=== PATIENT | male | born 1965 | race Caucasian/White ===

== ENCOUNTER 2019-08-31 08:50 | Outpatient (CLI) | payer OTHER, SELFPAY ==
--- NOTE | 2019-09-04 12:04 | WPDPFTINT ---
PFT Interpretation PFT Interpretation: This PFT met all criteria for ATS standards and reproducibility FEV/FVC post bronchodilator 76% of predicted FEV1 127% or 4.67 liters FVC 120% or 6.12 liters TLC 127% or 9.20 liters RV 127% RV/TLC 33% DLCO 125% of predicted when adjusted for alveolar volume but not adjusted for hemoglobin Flow volume loops showed some expiratory coving Impression: Hyperinflation and elevated diffusion capacity. This pattern suggest Asthma. There has been significant improvement in hyperinflation and air trapping when compared to PFT from October 2018. Niox was 15 ppb which is within normal limits.Clinical correlation is advised.
== END 2019-08-31 08:51 | disposition home or self-care (01) ==
PROVIDERS: PCP Family Medicine; Visit Provider Internal Medicine Critical Care Medicine
DX: J45.30 Mild persistent asthma, uncomplicated (principal); J45.909 Unspecified asthma, uncomplicated; R94.2 Abnormal results of pulmonary function studies
CPT/HCPCS: 94060; 94726; 94729; 95012

== ENCOUNTER 2022-12-22 05:51 | Day surgery (SDC) | payer OTHER, SELFPAY ==
--- NOTE | 2022-12-19 14:12 | P.PNAN_ITS ---
Anes - Initial Pre Proc Eval Procedure: Operation Date: 12/22/22 08:00 Proposed Procedures p Colonoscopy - Waldemar Mccray MD Date/Time: 12/19/22 14:12 Surgeon: Waldemar Mccray MD Pre Op Diagnosis: History of colon polyps Patient Data Age: 57 Gender: M Height: 1.83 m Weight: 104.33 kg Allergies Allergy/AdvReac Type Severity Reaction Status Date / Time No Known Allergies Allergy Unknown Verified 12/22/22 06:38 Home Medications Medication Instructions Recorded Confirmed Type rosuvastatin 20 mg tablet See Rx Instructions .Route 10/23/22 12/22/22 Rx .COMPLEX #90 tabs Patient hx anesthesia problems: none Family hx anesthesia problems: none Results Review: All pre-operative results and documents have been reviewed as part of the pre- operative evaluation. [facility] Past Medical History Medical History (Updated 12/19/22 @ 14:13 by Mani Monsivais DO) Asthma Benign neoplasm of scrotal skin BMI 30.0-30.9,adult BMI 31.0-31.9,adult Colon polyp Mixed hyperlipidemia Rhinitis Surgical History Surgical History H/O knee surgery Family History Family History Father , aortic aneurysm Hypertension Heart disease Mother Arthritis Sibling No problems noted. 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 Informed Consent: The patient's anesthetic plan and its attendant risks and benefits were discussed with the patient/family/POA. Questions were solicited and answers provided to the satisfaction of the patient/family/POA.
[2022-12-22 06:42] VITALS: BP 140/87; PULSE 82; RESP 16; TEMP 36.4; O2SAT 99
[2022-12-22 06:46] VITALS: BMI 31.4
--- NOTE | 2022-12-22 06:55 | SUR.PREOP ---
PT STATES HE HAS INJURY TO HIS RT FOREARM. RFA SLIGHTLY SWOLLEN. IV PLACED IN LEFT ARM
[2022-12-22] MEDS: LACTATED RINGERS 1,000 ML 150 ML IV CONT (06:56)
--- NOTE | 2022-12-22 07:45 | PM.HPGS ---
History of Present Illness History of Present Illness Consent: Risks, benefits, and alternatives have been discussed and questions answered. Patient agrees to proceed with procedure. Chief complaint: History of colon polyps Narrative: Giacomo Nguyen is a 57 year old male Presents for screening colonoscopy. Patient has a history of colon polyps removed at the time previous colonoscopy 2018. Sat is current weight appetite and bowel are normal. Patient denies abdominal pain. He had no bleeding. Family history noncontributory. Review of Systems Review of Systems: Review of systems noncontributory. [facility] Past Medical History Medical History (Updated 12/22/22 @ 07:46 by Waldemar Mccray MD) Asthma Benign neoplasm of scrotal skin BMI 30.0-30.9,adult BMI 31.0-31.9,adult Colon polyp Mixed hyperlipidemia Rhinitis Surgical History Surgical History H/O knee surgery Family History Family History Father , aortic aneurysm Hypertension Heart disease Mother Arthritis Sibling No problems noted. 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[employer] Gender identity (if verbalized by the patient): Male Spiritual care concerns: No Meds Home Medications and Allergies Home Medications Medication Instructions Recorded Confirmed Type rosuvastatin 20 mg tablet See Rx Instructions .Route 10/23/22 12/22/22 Rx .COMPLEX #90 tabs Allergies Allergy/AdvReac Type Severity Reaction Status Date / Time No Known Allergies Allergy Unknown Verified 12/22/22 06:38 Vital Signs Vital Signs - 24 hr 12/22/22 06:42 Temperature 97.6 F Pulse Rate 82 Respiratory Rate 16 Blood Pressure 140/87 Pulse Oximetry 99 Oxygen Delivery Room Air Exam Narrative: Physical exam reveals patient to be alert. Vital signs stable. HEENT exam is unremarkable. Patient is anicteric. Lungs are clear to auscultation and percussion. Heart is without murmur or extra sounds. Abdomen bowel sounds are present soft nontender with no hepatosplenomegaly. Digital external rectal exam is normal. Assessment and Plan Assessment and plan (1) History of colon polyps: Code(s): Z86.010 - Personal history of colonic polyps Status: Acute Assessment and Plan: Patient has a history of benign adenomatous colon polyp removed from the colon at time for his colonoscopy 2018. Plans for surveillance colonoscopy now and consider this a 5 year intervals.
[2022-12-22] MEDS: SIMETHICONE ORAL SUSPENSION 20 MG/0.3 ML 30 ML BOTTLE 0.6 ML IRRIGATION (08:01)
[2022-12-22 08:11] VITALS: BP 109/64; PULSE 83; RESP 16; O2SAT 96
[2022-12-22 08:21] VITALS: BP 102/60; PULSE 72; RESP 15; O2SAT 97
[2022-12-22 08:31] VITALS: BP 108/89; PULSE 75; RESP 16; O2SAT 98
--- NOTE | 2022-12-22 13:32 | WPDANESPN ---
Anes - Prog Note Post-Op Date/Time: 12/22/22 13:32 Cardiovascular status: normal Respiratory status: normal Airway patency: baseline Mental status: baseline Post-Op hydration status: normal Vital Signs: Last Vital Signs Temp 36.4 C 12/22/22 06:42 Pulse 75 12/22/22 08:31 Resp 16 12/22/22 08:31 BP 108/89 12/22/22 08:31 Pulse Ox 98 12/22/22 08:31 O2 Del Method Room Air 12/22/22 08:31 Pain Score (VAS): 0 I/O: Intake & Output 12/21/22 12/22/22 12/22/22 23:59 07:59 15:59 Intake Total 600 Balance 600 Post-procedural complaints: none Patient Feedback: Patient satisfied with anesthetic care. Other Findings: Patient vital signs back to baseline. Patient denies nausea and vomiting. Patient's pain under control. Patient OK for discharge.
== END 2022-12-22 08:40 | disposition home or self-care (01) ==
PROVIDERS: PCP Family Medicine; Visit Provider Internal Medicine Gastroenterology
PROC: 0DJD8ZZ Inspection of Lower Intestinal Tract, Via Natural or Artificial Opening Endoscopic (ICD-10-PCS; CPT 45378; principal; 2022-12-22 08:00)
DX: Z86.010 Personal history of colon polyps (principal); K64.8 Other hemorrhoids
CPT/HCPCS: 45378

== ENCOUNTER 2024-06-15 07:57 | Outpatient (CLI) | payer OTHER, SELFPAY ==
--- NOTE | ~2024-06-15 | XR_ITS ---
XR shoulder RT min 2V 06/15/2024 08:11 Indication: Right shoulder pain Procedure: 4 views right shoulder Comparison: 06/12/2011 Findings: There is moderate polyarticular osteoarthritis of the right shoulder most advanced at the g lenohumeral joint. No fracture, subluxation or dislocation. No foreign bodies. There is remodeling of the glenoid process. Impression: 1: Moderate polyarticular osteoarthritis. Reviewed, dictated and finalized at location A. Impression: 1: Moderate polyarticular osteoarthritis.
--- OUTSIDE RECORDS SUMMARY | 2024-06-15 08:04 | XMS_ITS | Clinical Summary ---
Author Organization [facility] Address [address] [place] [id number] Care Team Providers Care Law Firm Consultant Name Role Phone Chema Branham MD Primary Care Provider [phone] Encounters Date Type Department Care Team Description 04/06/2024 6:43 AM CERTIFIED LEGAL SECRETARY SPECIALIST - 04/06/2024 11:59 PM CERTIFIED LEGAL SECRETARY SPECIALIST Hospital Encounter [facility] [place] [address] Bobby Aaron MD Discharge Disposition: Home or Self Care (Routine Discharge) 04/06/2024 Travel from Last 3 Months Social History Tobacco Use Types Packs/Day Years Used Date Smoking Tobacco: Never Assessed Sex and Gender Information Value Date Recorded Sex Assigned at Male 03/21/2024 11:37 AM CERTIFIED LEGAL SECRETARY SPECIALIST Legal Sex Male 11:37 AM CERTIFIED LEGAL SECRETARY SPECIALIST Gender Identity Not on file Sexual Orientation Not on file Plan of Treatment Health Maintenance Due Date Last Done Comments Colorectal Cancer Screening Colonoscopy (10 Years) 1966 Annual Physical 1969 Hepatitis C 1984 Hepatitis B Vaccines (1 of 3 - 19+ 3-dose series) 1985 Pneumococcal Vaccine: 50+ Years (1 of 1 - PCV) 2016 Zoster Vaccines (1 of 2) 2016 COVID-19 Vaccine (2023-2 5 season) 2023 05/05/2020, 04/07/2020 DTaP, Tdap and Td Vaccines ( 2 - Td or Tdap) 12/09/2033 12/10/2023 Meningococcal B Vaccine Aged Out No l onger eligible based on patient's age to complete this topic Meningococcal Vaccine Aged Out No sravani saeed eligible based on patient's age to complete this topic RSV Immunizations Under 20 Months Aged Out No longer eligible b ased on patient's age to complete this topic Procedures Procedure Name Priority Date/Time Associated Diagnosis Comments CT HEART SCREEN CALCIUM SCORE PROMO Routine 04/06/2024 7:02 AM CERTIFIED LEGAL SECRETARY SPECIALIST Screening for cardiovascular condition from Last 3 Months Results * CT HEART SCREEN CALCIUM SCORE PROMO (04/06/2024 7:02 AM CERTIFIED LEGAL SECRETARY SPECIALIST) Anatomical Region Laterality Modality Chest Computed Tomogra phy 04/06/2024 7:15 AM CERTIFIED LEGAL SECRETARY SPECIALIST Impressions 04/06/2024 7:16 AM CERTIFIED LEGAL SECRETARY SPECIALIST =====IMPRESSION:===== Total Score: 311 Moderate plaque, moderately high risk, moderate likelihood of significant stenosis (>50%). Ordered By: BOBBY AARON Interpreted By: Chema Pinedo MD, 04/06/2024 7:15 AM Narrative 04/06/2024 7:16 AM CERTIFIED LEGAL SECRETARY SPECIALIST [address] [address] EXAMINATION: Multislice Helical CT Coronary Calcium Scoring REASON FOR EXAM: Screening for heart disease COMPARISON: None TECHNIQUE: Multislice helical CT images of the proximal coronary arteries with a computer generated calcification score. A dose lowering technique was used for this procedure, which may include, but is not limited to, dose reduction technique, automated exposure control, iterative reconstruction, ALARA (As Low As Reasonably Achievable), or Image Gently techniques. Results: Left main: 0 LAD: 263 Circumflex: 13.6 Right coronary: 34.2 Total Score: 311 Comments: There is no mediastinal adenopathy, and there are no pulmonary nodules in the visualized portions of the chest. Calcium score guidelines: Total Score* Calcium Plaque [place] *Risk *Probability of significant CAD 0 No Plaque Very Low Very unlikely 1-10 Minimal Plaque Low Unlikely 11-100 Mild Plaque Moderate Low likelihood of significant stenosis <50% 101-400 Moderate Plaque Moderately High Moderate likelihood of significant stenosis (>50%) Over 400 Extensive Plaque High High likelihood of significant stenosis (>50%) The amount of coronary artery calcification correlates with the severity of coronary atherosclerosis and the probability of future significant event. Calcification is not site specific for stenosis and does not identify non-calcified atherosclerotic plaque, but rather indicates the extent of atherosclerosis in the coronary arteries overall. The score may be used as an indicator for risk factor modification or additional cardiac testing. Significant change in calcium score over time may be indicative of subsequent disease development or useful as a benchmark to assess preventative programs. Procedure Note Chema Pinedo MD - 04/06/[address] [address] EXAMINATION: Multislice Helical CT Coronary Calcium Scoring REASON FOR EXAM: Screening for heart disease COMPARISON: None TECHNIQUE: Multislice helical CT images of the proximal coronary arterieswith a computer generated calcification score. A dose lowering techniquewas used for this procedure, which may include, but is not limited to,dose reduction technique, automated exposure control, iterativereconstruction, ALARA (As Low As Reasonably Achievable), or Image Gentlytechniques. Results: Left main: 0 LAD: 263 Circumflex: 13.6 Right coronary: 34.2 Total Score: 311 Comments: There is no mediastinal adenopathy, and there are no pulmonarynodules in the visualized portions of the chest. Calcium score guidelines: Total Score* Calcium Plaque [place] *Risk *Probability ofsignificant CAD 0 No Plaque Very LowVery unlikely 1-10 Minimal Plaque LowUnlikely 11-100 Mild Plaque ModerateLow likelihood of significant stenosis <50% 101-400 Moderate Plaque Moderately HighModerate likelihood of significant stenosis (>50%) Over 400 Extensive Plaque HighHigh likelihood of significant stenosis (>50%) The amount of coronary artery calcification correlates with the severityof coronary atherosclerosis and the probability of future significantevent. Calcification is not site specific for stenosis and does notidentify non-calcified atherosclerotic plaque, but rather indicates theextent of atherosclerosis in the coronary arteries overall. The score may be used as an indicator for risk factor modification oradditional cardiac testing. Significant change in calcium score over timemay be indicative of subsequent disease development or useful as abenchmark to assess preventative programs. =====IMPRESSION:===== Total Score: 311 Moderate plaque, moderately high risk, moderatelikelihood of significant stenosis (>50%). Ordered By: BOBBY AARON Interpreted By: Chema Pinedo MD, 04/06/2024 7:15 AM us Bobby Aaron MD CT Final Res ult from Last 3 Months Insurance Care Teams Law Firm Consultant Relationship Specialty Start Date End Date Chema Branham MD [address] [place] [address] PCP - General FAMILY PRACTICE 03/21/24
--- OUTSIDE RECORDS SUMMARY | 2024-06-15 08:04 | XMS_ITS | Referral Summary ---
Author Organization [facility] Address [address] [place] [address] Care Team Providers Care Felt Checker Name Role Phone Nikole Rivera Primary Care Provider Karina Ulrich MD Unavailable Encounters Date Type Department Care Team Description 06/06/2024 6:45 AM CDT Lab [facility] [address] [place] [address] Family history of ischemic heart disease 05/16/2024 Telephone [facility] [address] [place] [address] 8th [place] [address] [place] [address] Karina Ulrich MD 05/11/2024 7:30 AM CDT Ancillary Procedure [facility] [address] [place] [address] [address] [place] [address] Exertional dyspnea 05/09/2024 Results Follow-Up [facility] [address] [place] [address] Office Building [address] [place] [address] Karina Ulrich MD 05/09/2024 8:30 AM CDT Office Visit [facility] [address] [place] [address] Office Building [address] [place] [address] Karina Ulrich MD Exertional dyspnea (Primary Dx); Mixed hyperlipidemia; Family history of ischemic heart disease; Abnormal findings on diagnostic imaging of heart and coronary circulation; Elevated blood pressure reading 05/05/2024 Telephone [facility] [address] [facility] 8th [place] [address] [place] [address] Beth Gleason from Last 3 Months Allergies No known active allergies Medications rosuvastatin (CRESTOR) 20 mg tablet 08/28/2020 Active lisinopriL (PRINIVIL,ZESTRI L) 5 mg tablet Take 1 tablet (5 mg total) by mouth daily 90 tablet 3 05/17/2024 Active Active Problems Problem Noted Date Diagnosed Date Nasal congestion 04/23/2016 Chronic rhinitis 04/23/2016 Postnasal drip 04/23/2016 Persistent cough 04/23/2016 Tear of medial meniscus of knee 05/28/2015 Social History Tobacco Use Types Packs/Day Years Used Date Smoking Tobacco: Never Tobacco Cessation:Counseling Given: Not Answered Sex and Gender Information Value Date Recorded Sex Assigned at Not on file Legal 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 Gender Identity Not on file Sexual Orientation Not on file Last Filed Vital Signs Vital Sign Reading Time Taken Comments Blood Pressure 142/88 05/09/2024 8:09 AM CDT Pulse 66 05/09/2024 8:09 AM CDT Temperature - - Respiratory Rate - - Oxygen Saturation 98% 05/09/2024 8:09 AM CDT Inhaled Oxygen Concentration - - Weight 104.6 kg (230 lb 9.6 oz) 05/09/2024 8:09 AM CDT Height 180.3 cm (5' 11 ) 05/09/2024 8:09 AM CDT Body Mass Index 32.16 05/09/2024 8:09 AM CDT Plan of Treatment Not on file Procedures Procedure Name Priority Date/Time Associated Diagnosis Comments EGFR Routine 06/06/2024 6:53 AM CDT Family history of ischemic heart disease DIFFERENTIAL AUTO Routine 06/06/2024 6:5 3 AM CDT Family history of ischemic heart disease APOLIPOPROTEIN B Routine 06/06/2024 6:53 AM CDT Family history of ischemic heart disease HEMOGLOBIN A1C Routine 06/06/2024 6:53 AM CDT Family history of ischemic heart disease THYROID FUNCTION CASCADE Routine 06/06/2024 6:53 AM CDT Family history of ischemic heart disease PRO B-TYPE NATRIURETIC PEPTIDE Routine 06/06/2024 6:53 AM CDT Family history of ischemic heart disease MAGNESIUM Routine 06/06/2024 6:53 AM CDT Family history of ischemic heart disease LIPID PANEL Routine 06/06/2024 6:53 AM CDT Family history of ischemic heart disease LIPOPROTEIN A (LPA) Routine 06/06/2024 6 :53 AM CDT Family history of ischemic heart disease COMPREHENSIVE METABOLIC PANEL Routine 06/06/2024 6:53 AM CDT Family history of ischemic heart disease CBC WITH AUTO DIFFERENTIAL Routine 06/06/2024 6:53 AM CDT Family history of ischemic heart disease STRESS ECHO EXERCISE W DOPPLER/CF W CONTRAST Routine 05/11/2024 8:53 AM CDT Exertional dyspnea ECG 12-LEAD Routine 05/09/2024 8:13 AM CDT Mixed hyperlipidemia from Last 3 Months Results * eGFR (06/06/2024 6:53 AM CDT) eGFR 78 >=60 mL/min/1. 73 m2 Comment: Interpretive Data Reference Interval Normal >/= 90 mL/min/1.73m2 Mildly decreased* 60 - 89 mL/min/1.73m2 Mildly to moderately decreased 45 - 59 mL/min/1.73m2 Moderately to severely decreased 30 - 44 mL/min/1.73m2 Severely decreased 15 - 29 mL/min/1.73m2 Kidney Failure < 15 mL/min/1.73m2 *Relative to young adult level Estimated glomerular filtration rate is determined by the 2020 CKD-EPI equation recommended by the National Kidney Foundation (A Unifying Approach to GFR Estimation: Recommendations of the NKF-ASK Task Force on Reassessing the Inclusion of Race in Diagnosing Kidney Disease, JASN 202). The CKD-EPI equation should not be used for patients with unstable renal function and has not been validated in children and those over 70. Current interpretive data was last reviewed 2020. Testing performed by: [address] [address] Blood 06/06/2024 6:53 AM CDT 06/06/2024 7:24 AM CDT us Karina Ulrich MD LAB BLOOD ORDERABLES Final Result [facility] [place] [address] * Differential, auto (06/06/2024 6:53 AM CDT) Neutrophil abs 4.01 1.50 - 6.50 K/cumm Comment:Testing performed by : [address] [address] Imm gran abs 0.02 0.00 - 0.10 K/cumm AMY [facility] Comment:Testing performed by : [address] [address] Lymphocyte abs 2.18 0.80 - 3.30 K/cumm AMY Comment:Testing performed by : [address] [address] Monocyte abs 0.44 0.20 - 0.80 K/cumm AMY Comment:Testing performed by : [address] [address] Eosinophil abs 0.17 0.00 - 0.50 K/cumm AMY Comment:Testing performed by : [address] [address] Basophil abs 0.05 0.00 - 0.10 K/cumm AMY Comment:Testing performed by : [address] [address] Neutrophil pct 58.4 % AMY [facility] Comment: Interpretive Data Percent cell count reference ranges are not reported, since discordance with absolute values may lead to misinterpretation of CBC data. Current Interpretive Data was last revised on 2017. Testing performed by: [address] [address] Imm gran pct 0.3 % [facility] Comment: Interpretive Data Percent cell count reference ranges are not reported, since discordance with absolute values may lead to misinterpretation of CBC data. Current Interpretive Data was last revised on 2017. Testing performed by: [address] [address] Lymphocyte pct 31.7 % [facility] Comment: Interpretive Data Percent cell count reference ranges are not reported, since discordance with absolute values may lead to misinterpretation of CBC data. Current Interpretive Data was last revised on 2017. Testing performed by: [address] [address] Monocyte pct 6.4 % [facility] Comment: Interpretive Data Percent cell count reference ranges are not reported, since discordance with absolute values may lead to misinterpretation of CBC data. Current Interpretive Data was last revised on 2017. Testing performed by: [address] [address] Eosinophil pct 2.5 % [facility] Comment: Interpretive Data Percent cell count reference ranges are not reported, since discordance with absolute values may lead to misinterpretation of CBC data. Current Interpretive Data was last revised on 2017. Testing performed by: [address] [address] Basophil pct 0.7 % [facility] Comment: Interpretive Data Percent cell count reference ranges are not reported, since discordance with absolute values may lead to misinterpretation of CBC data. Current Interpretive Data was last revised on 2017. Testing performed by: [address] [address] Blood 06/06/2024 6:53 AM CDT 06/06/2024 7:24 AM CDT Karina Ulrich MD LAB BLOOD ORDERABLES Final Result Performing Organization Address City/State/[facility] Co de Phone Number AMY [address] [facility] [place] [address] * Pro B-type natriuretic peptide (06/06/2024 6:53 AM CDT) NT-proBNP 48 <=300 pg/mL Comment: Interpretive Comments: A. Dyspnea in Acute Care Setting All Ages: < 300 pg/ml, acute heart failure unlikely. < 50 yrs: 300 - 450 pg/ml, further investigation warranted. > 450 pg/ml, acute heart failure likely. 50 - 74 yrs: 300 - 900 pg/ml, further investigation warranted. > 900 pg/ml, acute heart failure likely . > or = 75 yrs: 450 - 1800 pg/ml, further investigation warranted. > 1800 pg/ml, acute heart failure likely. B. Non-acute Setting < 75 yrs < 125 pg/ml, rules out heart failure. > or = 125 pg/ml, further investigation warranted. > or = 75 yrs < 450 pg/ml, rules out heart failure. > or = 450 pg/ml, further investigation warranted. - Knowledge of each individual patient's NT-proBNP range may be more useful than using similar cut-points for every patient. Please note that marked elevations in NT-proBNP levels may be observed in state other than Left Ventricular Congestive Failure, including: acute coronary syndromes, right heart strain/failure (including pulmonary embolism and cor pulmonale), critical illness, renal failure, as well as advanced age. - References: 1. Italia TARANGO et.al. Eur Heart J. 2006:27:330-337. 2. Keny RW, Lucretia AM. J. AM Eldon Cardiol: Cardiovasc Imag. 2009;2: 216- 225. Interpretive Data Last Revised Date: 2017. Testing performed by: [facility], [address] [place] [address]., [address] Blood 06/06/2024 6:53 AM CDT 06/06/2024 7:24 AM CDT Karina Ulrich MD LAB BLOOD ORDERABLES Final Result Performing Organization Address [facility] Co de Phone Number CERNER [address] [place] [address] * Thyroid Function [place] (06/06/2024 6:53 AM CDT) [facility] TSH 0.97 0.30 - 4.20 mcIUnit/mL Comment:Testing performed by : [address], [address] Blood 06/06/2024 6:53 AM CDT 06/06/2024 7:24 AM CDT Karina Ulrich MD LAB BLOOD ORDERABLES Final Result Performing Organization Address [facility] Co de Phone Number AMY [address] [address] * Apolipoprotein B, serum (06/06/2024 6:53 AM CDT) [facility] Apolipoprotein B 87 mg/dL [place] [facility] Comment: REFERENCE VALUE Desirable: <90 Above Desirable: 90-99 Borderline high: 100-119 High: 120-139 Very high: > or = 140 Test Performed by: [address] [address] Doctor Podiatric Medicine: Siria Shoemaker Ph.D.; CLIA# [id number] Testing performed by: [address] [address] Blood 06/06/2024 6:53 AM CDT 06/06/2024 7:24 AM CDT Karina Ulrich MD LAB BLOOD ORDERABLES Final Result Performing Organization Address City/[facility]/ZIP Co de Phone Number AMY [address] [address] [facility] * CBC with auto differential (06/06/2024 6:53 AM CDT) WBC 6.87 3.80 - 9.90 K/cumm Comment:Testing performed by : [address] [address] Hgb 15.3 13.0 - 17.5 g/dL AMY Comment:Testing performed by : [address] [address] Hct 43.7 38.9 - 50.3 % AMY Comment:Testing performed by : [address] [address] Plt 285 150 - 400 K/cumm AMY Comment:Testing performed by : [address], [address] MPV 9.6 9.1 - 12.3 fL AMY Comment:Testing performed by : [address] [address] RBC 5.36 4.30 - 5.80 M/cumm AMY Comment:Testing performed by : [address] [address] MCV 81.5 81.3 - 96.4 fL AMY Comment:Testing performed by : [address] [address] MCH 28.5 27.1 - 33.3 pg AMY Comment:Testing performed by : [address] [address] MCHC 35.0 32.3 - 35.7 g/dL AMY Comment:Testing performed by : [address], [address] RDW CV 12.3 11.1 - 14.9 % AMY Comment:Testing performed by : [address] [address] RDW SD 36.2 35.7 - 48.1 fL AMY Comment:Testing performed by : [address] [address] NRBC abs 0.00 0.00 - 0.01 K/cumm AMY Comment:Testing performed by : [address], [address] Blood 06/06/2024 6:53 AM CDT 06/06/2024 7:24 AM CDT us Karina Ulrich MD LAB BLOOD ORDERABLES Final Result AMY [address] [facility] [place] [address] * (ABNORMAL) Lipoprotein a (LPa) (06/06/2024 6:53 AM CDT) Lipoprotein A 170(H) <75 nmol/L [place] Comment: Lp(a) confers increased risk for coronary disease and aortic stenosis starting at concentrations of 75 nmol/L and greater. Lp(a) >=125 nmol/L is considered a risk-enhancing factor for cardiovascular disease by several professional societies. Clinician-patient discussion of therapeutic strategy is warranted. ADDITIONAL INFORMATION Please notice that Lp(a) values are reported in molar units (nmol/L). These units are recommended by professional society guidelines and expert opinion statements. Measured results and risk thresholds are higher than those generated using mass units (mg/dL). Cardiovascular risk increases starting at 75 nmol/L. Lp(a) >=125 nmol/L is considered a risk enhancing factor by the [place] [employer]. This test has been modified from the communications officer's instructions. Its performance characteristics were determined by [facility] in a manner consistent with CLIA requirements. This test has not been cleared or approved by the U.S. Food and Drug Administration. Test Performed by: [facility] [address] [address] Doctor Podiatric Medicine: Siria Shoemaker Ph.D.; CLIA# [id number] Testing performed by: [facility], [address] [place] [address]., [address] Blood 06/06/2024 6:53 AM CDT 06/06/2024 7:23 AM CDT us Karina Ulrich MD LAB BLOOD ORDERABLES Final Result Performing Organization Address City/[facility]/ZIP Co de Phone Number AMY [address] [place] [address] [facility] * Magnesium (06/06/2024 6:53 AM CDT) [facility] Magnesium 1.9 1.4 - 2.5 mg/dL Comment:Testing performed by : [address] [address] Blood 06/06/2024 6:53 AM CDT 06/06/2024 7:24 AM CDT Karina Ulrich MD LAB BLOOD ORDERABLES Final Result Performing Organization Address [facility] Co de Phone Number AMY [address] [address] * Hemoglobin A1c (06/06/2024 6:53 AM CDT) [facility] Hgb A1C 5.2 4.0 - 5.6 % Comment:Testing performed by : [address] [address] Estimated Average Glucose 103 mg/dL AMY Comment: The ADA recommends reporting an estimated Average Glucose (eAG) with all Hemoglobin A1c results using the equation derived from a study of 507 normal and diabetic adults. Minority populations were underrepresented and children were not included. (Diabetes Care 31:8816-1744, 2008). The eAG is not equivalent to a fasting glucose. Testing performed by: [address] [address] Blood 06/06/2024 6:53 AM CDT 06/06/2024 7:24 AM CDT Karina Ulrich MD LAB BLOOD ORDERABLES Final Result Performing Organization Address [facility] Co de Phone Number [address] [address] * Lipid panel (06/06/2024 6:53 AM CDT) Cholesterol 169 30 - 199 mg/dL Comment: Interpretive Data Ages < or = 19 years Acceptable: <170 mg/dL Borderline high: 170-199 mg/dL High: >or= 200 mg/dL Ages > or = 20 years Desirable: <200 mg/dL Borderline high: 200-239 mg/dL High: >or= 240 mg/dL Literature References: 1. Expert Panel on Integrated Guidelines for Cardiovascular Health and Risk Reduction in Children and Adolescents. Pediatrics 2011;128:S213 2. NCEP Expert Panel. Circulation 2004;110:227 Current Interpretive Data was last revised on 2017. Testing performed by: [address] [address] Triglycerides 113 <=149 mg/dL AMY Comment: Interpretive Data Ages < or = 9 years Acceptable: <75 mg/dL Borderline high: 75-99 mg/dL High: >or= 100 mg/dL Ages 10 to 20 years Acceptable: <90 mg/dL Borderline high: 90-129 mg/dL High: >or= 130 mg/dL Ages > or = 20 years Desirable: <150 mg/dL Borderline high: 150-199 mg/dL High: 200-499 mg/dL Very high: >or= 499 mg/dL Literature References: 1. Expert Panel on Integrated Guidelines for Cardiovascular Health and Risk Reduction in Children and Adolescents. Pediatrics 2011;128:S213 2. NCEP Expert Panel. Circulation 2003;110:227 Current Interpretive Data was last revised on 2017. Testing performed by: [address] [address] HDL 46 >=40 mg/dL AMY Comment: Interpretive Data Ages < or = 19 years Acceptable: >45 mg/dL Borderline low: 40-45 mg/dL Low: <40 mg/dL Ages > or = 20 years Desirable: >or= 60 mg/dL Low: <40 mg/dL Literature References: 1. Expert Panel on Integrated Guidelines for Cardiovascular Health and Risk Reduction in Children and Adolescents. Pediatrics 2011;128:S213 2. NCEP Expert Panel. Circulation 2004;110:227 Current Interpretive Data was last revised on 2017. Testing performed by: [address] [address] LDL, calculated 103 <=129 mg/dL AMY Comment: Interpretive Data Ages < or = 19 years Acceptable: <110 mg/dL Borderline high: 110-129 mg/dL High: >or= 130 mg/dL Ages > or = 20 years Optimal: <100 mg/dL Near optimal: 100-129 mg/dL Borderline high: 130-159 mg/dL High: >160 mg/dL Calculated using the Mohan LDL-C estimating equation. This equation was implemented on 2023. Prior to this date LDL-C was estimated using the Friedewald equation. Literature References: 1. Expert Panel on Integrated Guidelines for Cardiovascular Health and Risk Reduction in Children and Adolescents. Pediatrics 2011;128:S213 2. NCEP Expert Panel. Circulation 2004;110:227 3. Mohan Oshea et al. ANGELA Cardiol. 2019June 23;5(5):540-548. doi: 10.1001/jamacardio.2020.0013 Current Interpretive Data was last revised on 2023. Testing performed by: [address] [address] Non-HDL Cholesterol 123 mg/dL AMY Comment: Interpretive Data Ages < or = 19 years Acceptable: <120 mg/dL Borderline high: 120-144 mg/dL High: >145 mg/dL Ages > or = 20 years When triglycerides are >200 mg/dL, Non-HDL cholesterol is a secondary target of therapy with treatment goals that are 30 mg/dL greater than the LDL cholesterol target. Literature References: 1. Expert Panel on Integrated Guidelines for Cardiovascular Health and Risk Reduction in Children and Adolescents. Pediatrics 2011;128:S213 2. NCEP Expert Panel. Circulation 2004;110:227 Current Interpretive Data was last revised on 2017. Testing performed by: [address] [address] Chol/HDL ratio 4 AMY Comment:Testing performed by : [address] [address] Blood 06/06/2024 6:53 AM CDT 06/06/2024 7:24 AM CDT Karina Ulrich MD LAB BLOOD ORDERABLES Final Result AMY [address] [facility] [place] [address] * Comprehensive metabolic panel (06/06/2024 6:53 AM CDT) Sodium 142 135 - 145 mmol/L Comment:Testing performed by : [address] [address] Potassium, pl 3.5 3.3 - 4.9 mmol/L AMY Comment:Testing performed by : [address] [address] Chloride 104 97 - 110 mmol/L AMY Comment:Testing performed by : [address] [address] CO2 26 22 - 32 mmol/L AMY Comment:Testing performed by : [address] [address] Anion gap 12 2 - 15 mmol/L AMY Comment:Testing performed by : [address] [address] BUN 15 6 - 25 mg/dL AMY Comment:Testing performed by : [address] [address] Creatinine 1.10 0.80 - 1.30 mg/dL AMY Comment:Testing performed by : [address] [address] Glucose 105 70 - 199 mg/dL AMY Comment: Interpretive Data Fasting glucose >/= 126 mg/dl is diagnostic for diabetes. Fasting is defined as no caloric intake for at least 8 hours. Fasting glucose between 100 mg/dl to 125 mg/dl is diagnostic of prediabetes. In a patient with classic symptoms of hyperglycemia or hyperglycemic crisis, a random glucose >/= 200 mg/dl is diagnostic for diabetes. In the absence of unequivocal hyperglycemia, results should be confirmed by repeat testing. The classification and Diagnosis of Diabetes Diabetes Care 202; 46: S19-S40. Current interpretive data was last revised 2022. Testing performed by: [address] [address] Calcium 9.0 8.5 - 10.3 mg/dL AMY Comment:Testing performed by : [address] [address] Bilirubin, total 0.6 0.1 - 1.2 mg/dL AMY Comment:Testing performed by : [address] [address] Protein, pl 7.0 6.5 - 8.5 g/dL AMY Comment:Testing performed by : [address] [address] Albumin 4.0 3.5 - 5.0 g/dL AMY Comment:Testing performed by : [address] [address] Alk phos 62 40 - 130 Units/L AMY Comment:Testing performed by : [address] [address] ALT 14 7 - 55 Units/L AMY Comment:Testing performed by : [address] [address] AST 18 10 - 50 Units/L AMY Comment:Testing performed by : [address] [address] Blood 06/06/2024 6:53 AM CDT 06/06/2024 7:24 AM CDT us Karina Ulrich MD LAB BLOOD ORDERABLES Final Result Performing Organization Address City/State/[facility] Co ga Phone Number [facility] [address] [facility] [place] [address] * STRESS ECHO EXERCISE W DOPPLER/CF W CONTRAST (05/11/2024 8:53 AM CDT) Anatomical Region Laterality Modality Ultrasound 05/11/2024 7:30 AM CDT Narrative 05/11/2024 1:29 PM CDT [facility] [address] [place] [address] Exercise Stress Transthoracic Echocardiographic Report Patient Name: TERRY TREVINO S : 1965 (58y 11m) Gender: M Study Date: 05/11/2024 07:30:00 AM Ht(Inch): 71 Wt(Lb): 227.96 BSA: 2.28 Peanut Butter Maker: Lisbeth Cornejo, TIFFANIECS, RCCS, ACS Location: [facility] Order Provider: KARINA ULRICH Heart Rate: 66 BMI: 31.79 BP: 143 / 86 Ref Provider: KARINA ULRICH PROCEDURES: Stress Echo Report: Stress Echocardiography,transthoracic, real-time with image documentation (2D), includes M-Mode recording, Doppler Echocardiography, and Doppler color flow when performed, during treadmill exercise induced peak heart rate with interpretation and report; including performance of continuous electrocardiographic monitoring, with physician supervision. Additional Procedures: Ultrasound enhancing agent (echo contrast) was administered. Contrast: Contrast Enhancement was Employed: After initial imaging due to sub- optimal quality related to co-morbidity defined by patient's body habitus, used Perflutren contrast because 2 of 16 LV wall segments in any view not visualized, using the volume necessary to obtain adequate images and. 1.1 ml Optison Administered, (1.9 ml wasted). Performed By: Marianela Wright RN, MSN. Supervising Physician: Dr. Barbie Fung. Procedure Notes: IV Access Placement: right antecubital fossa. Catheter Size: 22 gauge. Patient has been given instructions and understands the test, consent obtained. Patient has been NPO for 4 hours. Medications Held: none. Medications Taken: crestor. INDICATIONS: R06.09 Other forms of dyspnea. CONCLUSIONS: 1. Normal LV wall thickness. Mild concentric left ventricular hypertrophy. Normal left ventricular systolic function. The Ejection Fraction (Lazar's) is measured at 63 %. Normal diastolic function. The average global longitudinal strain is borderline. 2. No ischemic ST changes noted on exercise ECG. 3. Maximal treadmill stress echocardiogram (93% MPHR) with normal hyperdynamic contractile response with no inducible ischemia. 4. Exercise performance was excellent (13 METS). 5. Right ventricular dilatation. Normal right ventricular systolic function. 6. Mild aortic valve regurgitation. 7. No tricuspid regurgitation. PASP cannot be evaluated due to inadequate TR jet. 8. Normal aortic root size, SoV~3.8cm. 9. IVC is normal in size. COMPARISONS: No previous study available for comparison. ATTESTATION: I have personally reviewed and interpreted this study without fellow or resident. - DISCLAIMER: The study images and the final report will be retained in the patient chart by the Echo Laboratory for the legally required time period. This chart constitutes the legal record of any testing performed. FINDINGS: Left Ventricle: Normal left ventricular size based on volume index. Normal LV wall thickness. Mild concentric left ventricular hypertrophy. Normal left ventricular systolic function. The Ejection Fraction (Lazar's) is measured at 63 %. Normal diastolic function. The average global longitudinal strain is borderline. The LV global strain is: -18.0 %. Right Ventricle: Right ventricular dilatation. Normal right ventricular systolic function. Left Atrium: The left atrium is normal in size. Right Atrium: Visually, RA normal in size. Atrial Septum: Normal interatrial septum. Mitral Valve: Normal mitral valve structure. Trace mitral regurgitation. No stenosis present. Aortic Valve: Trileaflet aortic valve. Minimally thickened aortic valve leaflets. Mild aortic valve regurgitation. No aortic valve stenosis. Tricuspid Valve: Normal tricuspid valve structure. No tricuspid regurgitation. PASP cannot be evaluated due to inadequate TR jet. Pulmonic Valve: The pulmonic valve is not well visualized due to not visualized. Unable to assess for KS/PS. Pericardium: No pericardial effusion. Aorta: Normal aortic root size, SoV~3.8cm. Normal aortic root size when indexed. The ascending aorta is normal in size when indexed. Prox asc Ao~3.5cm. IVC: IVC is normal in size. The IVC was <2.1 cm and collapsibility >50%. (est. RA pressure 0-5 mmHg). Resting ECG: Normal sinus rhythm. Premature ventricular contractions. Stress Data: Protocol - Sanjeev Protocol. Exercise Time: 10 Min 31 Sec Resting HR: 73 bpm Resting BP: 143/86 mmHg Standing HR: 85 bpm Standing BP: 150/88 mmHg Peak HR: 151 bpm Peak BP: 194/80 mmHg Predicted Maximal HR: 163 Percent predicted max HR achieved: 93 % Rate-Pressure Product: 15448 METS Achieved: 13.40 Treadmill Angina Index (0=No angina during exercise, 1=non-limiting angina, 2=exercise limited angina): 0 Recovery: Recovery HR: 93 bpm Recovery BP: 194/86 mmHg Recovery HR: 85 bpm Recovery BP: 178/84 mmHg Recovery HR: 83 bpm Recovery BP: 160/84 mmHg HR Response: Heart rate response is appropriate. BP Response: Blood pressure response is appropriate. Exercise ECG: No ischemic ST changes noted on exercise ECG. Reason for Termination: Limiting Dyspnea. Arrhythmia: No exercise induced arrhythmias. Cardiac Symptoms: Symptoms with stress were patient had no stress related symptoms. Exercise Performance: Exercise performance was excellent (13 METS). Exercise Stress LV Function: Maximal treadmill stress echocardiogram (93% MPHR) with normal hyperdynamic contractile response with no inducible ischemia. MEASUREMENTS: 2D/MM Value Range Doppler Value Range LVIDd 2D 5.25 cm [ 4.20 - 5.80 ] LVOT Peak Mendez 1.0 m/s [ 0.7 - 1.1 ] LVIDs 2D 3.06 cm [ 2.50 - 4.00 ] LVOT Peak PG 4.00 mmHg IVSd 2D 1.26 cm [ 0.60 - 1.00 ] LVOT Mean PG 2 mmHg LVPWd 2D 1.04 cm [ 0.60 - 1.00 ] LVOT VTI 21.3 cm LV Thickness Ratio 1.2 LVOT Diam 2.32 cm LV FS 2D 33.05 % [ 25.00 - 43.00 ] MV E Peak Mendez 0.7 m/s [ 0.6 - 1.3 ] LV Mass 2D 242.90 g MV A Peak Mendez 0.5 m/s [ 1.0 - 1.2 ] LV Mass Index 2D 106.54 g/m2 MV E/A 1.4 ratio [ 0.8 - 1.5 ] RWT 0.40 MV Decel Time 179.21 msec [ 104.00 - 258.00 ] EDV Mod BP 143.97 ml [ 62.00 - 150.00 ] Med E` Mendez 7.1 cm/sec [ 8.0 - 15.0 ] LV EDV Index 63.14 ml/m2 Lat E` Mendez 9.1 cm/sec [ 10.0 - 15.0 ] ESV Mod BP 53.05 ml [ 21.00 - 61.00 ] Average E/E` 8.64 EF Mod BP 63 % [ 52 - 72 ] LV GLS -18.0 % [ -18.0 - -16.0 ] LA Volume BP 60.00 ml LA Volume Index 26.32 ml/m2 [ 16.00 - 34.00 ] RV Base Dimen 2D 5.4 cm [ 2.5 - 4.2 ] RV Length Dimen 2D 7.7 cm TAPSE 2.54 cm [ 1.71 - 5.00 ] AoR Diam 2D 3.77 cm [ 3.10 - 3.70 ] Ao Root Index 1.65 cm/m2 [ 1.00 - 2.00 ] Asc Ao Diam 2D 3.47 cm Asc Ao Index 1.52 cm/m2 Electronically Signed By: Barbie Fung M.D. 05/11/2024 1:28:22 PM CDT CC: Karina Ulrich MD Procedure Note Barbie Fung MD - 05/11/2024 [facility] [address] , [address] [place] [address] Exercise Stress Transthoracic Echocardiographic Report Patient Name: TERRY TREVINO S : 1965 (58y 11m) Gender: M Study Date: 05/11/2024 07:30:00 AM Ht(Inch): 71 Wt(Lb): 227.96 BSA: 2.28 Peanut Butter Maker: Lisbeth Cornejo, TIFFANIECS, RCCS, ACS Location: I Order Provider:KARINA ULRICH Heart Rate: 66 BMI: 31.79 BP: 143 / 86 Ref Provider: KARINA ULRICH PROCEDURES: Stress Echo Report: Stress Echocardiography,transthoracic, real-time withimage documentation (2D), includes M-Mode recording, Doppler Echocardiography,and Doppler color flow when performed, during treadmill exercise induced peak heartrate with interpretation and report; including performance of continuouselectrocardiographic monitoring, with physician supervision. Additional Procedures: Ultrasound enhancing agent (echo contrast) wasadministered. Contrast: Contrast Enhancement was Employed: After initial imaging due tosub- optimal quality related to co-morbidity defined by patient's body habitus, usedPerflutren contrast because 2 of 16 LV wall segments in any view not visualized,using the volume necessary to obtain adequate images and. 1.1 ml Optison Administered, (1.9ml wasted). Performed By: Marianela Wright RN, MSN. Supervising Physician: Dr. Barbie Fung. Procedure Notes: IV Access Placement: right antecubital fossa. CatheterSize: 22 gauge. Patient has been given instructions and understands the test, consentobtained. Patient has been NPO for 4 hours. Medications Held: none. Medications Taken:crestor. INDICATIONS: R06.09 Other forms of dyspnea. CONCLUSIONS: 1. Normal LV wall thickness. Mild concentric left ventricular hypertrophy.Normal left ventricular systolic function. The Ejection Fraction (Lazar's) ismeasured at 63 %. Normal diastolic function. The average global longitudinal strain isborderline. 2. No ischemic ST changes noted on exercise ECG. 3. Maximal treadmill stress echocardiogram (93% MPHR) with normalhyperdynamic contractile response with no inducible ischemia. 4. Exercise performance was excellent (13 METS). 5. Right ventricular dilatation. Normal right ventricular systolicfunction. 6. Mild aortic valve regurgitation. 7. No tricuspid regurgitation. PASP cannot be evaluated due to inadequateTR jet. 8. Normal aortic root size, SoV~3.8cm. 9. IVC is normal in size. COMPARISONS: No previous study available for comparison. ATTESTATION: I have personally reviewed and interpreted this study without fellow orresident. - DISCLAIMER: The study images and the final report will be retained in the patientchart by the Echo Laboratory for the legally required time period. This chart constitutesthe legal record of any testing performed. FINDINGS: Left Ventricle: Normal left ventricular size based on volume index. NormalLV wall thickness. Mild concentric left ventricular hypertrophy. Normal leftventricular systolic function. The Ejection Fraction (Lazar's) is measured at 63 %. Normaldiastolic function. The average global longitudinal strain is borderline. The LVglobal strain is: -18.0 %. Right Ventricle: Right ventricular dilatation. Normal right ventricularsystolic function. Left Atrium: The left atrium is normal in size. Right Atrium: Visually, RA normal in size. Atrial Septum: Normal interatrial septum. Mitral Valve: Normal mitral valve structure. Trace mitral regurgitation.No stenosis present. Aortic Valve: Trileaflet aortic valve. Minimally thickened aortic valveleaflets. Mild aortic valve regurgitation. No aortic valve stenosis. Tricuspid Valve: Normal tricuspid valve structure. No tricuspidregurgitation. PASP cannot be evaluated due to inadequate TR jet. Pulmonic Valve: The pulmonic valve is not well visualized due to notvisualized. Unable to assess for KS/PS. Pericardium: No pericardial effusion. Aorta: Normal aortic root size, SoV~3.8cm. Normal aortic root size whenindexed. The ascending aorta is normal in size when indexed. Prox asc Ao~3.5cm. IVC: IVC is normal in size. The IVC was <2.1 cm and collapsibility >50%.(est. RA pressure 0-5 mmHg). Resting ECG: Normal sinus rhythm. Premature ventricular contractions. Stress Data: Protocol - Sanjeev Protocol. Exercise Time: 10 Min 31 Sec Resting HR: 73 bpm Resting BP: 143/86 mmHg Standing HR: 85 bpm Standing BP: 150/88 mmHg Peak HR: 151 bpm Peak BP: 194/80 mmHg Predicted Maximal HR: 163 Percent predicted max HR achieved: 93 % Rate-Pressure Product: 34024 METS Achieved: 13.40 Treadmill Angina Index (0=No angina during exercise, 1=non-limitingangina, 2=exercise limited angina): 0 Recovery: Recovery HR: 93 bpm Recovery BP: 194/86 mmHg Recovery HR: 85bpm Recovery BP: 178/84 mmHg Recovery HR: 83 bpm Recovery BP: 160/84 mmHg HR Response: Heart rate response is appropriate. BP Response: Blood pressure response is appropriate. Exercise ECG: No ischemic ST changes noted on exercise ECG. Reason for Termination: Limiting Dyspnea. Arrhythmia: No exercise induced arrhythmias. Cardiac Symptoms: Symptoms with stress were patient had no stress relatedsymptoms. Exercise Performance: Exercise performance was excellent (13 METS). Exercise Stress LV Function: Maximal treadmill stress echocardiogram (93%MPHR) with normal hyperdynamic contractile response with no inducible ischemia. MEASUREMENTS: 2D/MM Value Range DopplerValue Range LVIDd 2D 5.25 cm [ 4.20 - 5.80 ] LVOT Peak Vel1.0 m/s [ 0.7 - 1.1 ] LVIDs 2D 3.06 cm [ 2.50 - 4.00 ] LVOT Peak PG4.00 mmHg IVSd 2D 1.26 cm [ 0.60 - 1.00 ] LVOT Mean PG2 mmHg LVPWd 2D 1.04 cm [ 0.60 - 1.00 ] LVOT VTI21.3 cm LV Thickness Ratio 1.2 LVOT Diam2.32 cm LV FS 2D 33.05 % [ 25.00 - 43.00 ] MV E Peak Vel0.7 m/s [ 0.6 - 1.3 ] LV Mass 2D 242.90 g MV A Peak Vel0.5 m/s [ 1.0 - 1.2 ] LV Mass Index 2D 106.54 g/m2 MV E/A1.4 ratio [ 0.8 - 1.5 ] RWT 0.40 MV Decel Xymt426.21 msec [ 104.00 - 258.00 ] EDV Mod BP 143.97 ml [ 62.00 - 150.00 ] Med E` Vel7.1 cm/sec [ 8.0 - 15.0 ] LV EDV Index 63.14 ml/m2 Lat E` Vel9.1 cm/sec [ 10.0 - 15.0 ] ESV Mod BP 53.05 ml [ 21.00 - 61.00 ] Average E/E`8.64 EF Mod BP 63 % [ 52 - 72 ] LV GLS -18.0 % [ -18.0 - -16.0 ] LA Volume BP60.00 ml LA Volume Index 26.32 ml/m2 [ 16.00 - 34.00 ] RV Base Dimen 2D 5.4 cm [ 2.5 - 4.2 ] RV Length Dimen 2D7.7 cm TAPSE 2.54 cm [ 1.71 - 5.00 ] AoR Diam 2D 3.77 cm [ 3.10 - 3.70 ] Ao Root Index 1.65 cm/m2 [ 1.00 - 2.00 ] Asc Ao Diam 2D3.47 cm Asc Ao Index1.52 cm/m2 Electronically Signed By: Barbie Fung M.D. 05/11/2024 1:28:22 PM CDT CC: Karina Ulrich MD us Karina Ulrich MD CV ECHO PROCEDURES Final R esult * ECG 12 lead (05/09/2024 8:13 AM CDT) us Karina Ulrich MD ECG ORDERABLES Edited Res ult - Final from Last 3 Months Insurance [employer] [facility] [employer] Care Teams Felt Checker Relationship Specialty Start Date End Date Nikole Rivera PA [address] [place], [place] [id number] PCP - General Physician Intermediate Manager 05/05/24 Karina Ulrich MD [id number] [id number] Securities Underwriter Cardiology 06/14/24 02/23/40
--- OUTSIDE RECORDS SUMMARY | 2024-06-15 08:04 | XMS_ITS | Clinical Summary ---
Author Organization [facility] Address [address] [place] [address] Care Team Providers Care Adhesive Primer Name Role Phone Nikole Rivera Primary Care Provider Karina Ulrich MD Unavailable Allergies No known active allergies Medications rosuvastatin (CRESTOR) 20 mg tablet 08/28/2020 Active lisinopriL (PRINIVIL,ZESTRI L) 5 mg tablet Take 1 tablet (5 mg total) by mouth daily 90 tablet 3 05/17/2024 Active Active Problems Problem Noted Date Diagnosed Date Nasal congestion 04/23/2016 Chronic rhinitis 04/23/2016 Postnasal drip 04/23/2016 Persistent cough 04/23/2016 Tear of medial meniscus of knee 05/28/2015 Encounters Date Type Department Care Team Description 06/06/2024 6:45 AM CDT Lab [facility] [address] [place] [address] Family history of ischemic heart disease 05/16/2024 Telephone [facility] [address] [facility] [address] 8th [place] [address] [place] [address] Karina Ulrich MD 05/11/2024 7:30 AM CDT Ancillary Procedure Heart [facility] [address] [facility] [address] [place] [address] Exertional dyspnea 05/09/2024 8:30 AM CDT Office Visit [facility] [address] [facility] [address] [place] [address] Karina Ulrich MD Exertional dyspnea (Primary Dx); Mixed hyperlipidemia; Family history of ischemic heart disease; Abnormal findings on diagnostic imaging of heart and coronary circulation; Elevated blood pressure reading 05/09/2024 Results Follow-Up [facility] [address] [facility] [address] [place] [address] Karina Ulrich MD 05/05/2024 Telephone [facility] [address] [facility] [address] [facility] [address] 8th [place] [address] [place] [address] Beth Gleason from Last 3 Months Surgical History Surgery Date Site/Laterality Comments KNEE SURGERY Knee Surgery - Meniscectomy (Added by TW Conv) Family History Medical History Relation Name Comments Aortic aneurysm Father Dissection Hypertension Father Family history of hypertension - (Added by TW Conv) Heart attack Paternal Grandfather Relation Name Status Comments Father Paternal Grandfather Social History Tobacco Use Types Packs/Day Years Used Date Smoking Tobacco: Never Tobacco Cessation:Counseling Given: Not Answered Sex and Gender Information Value Date Recorded Sex Assigned at Not on file Legal Sex Male 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 Gender Identity Not on file Sexual Orientation Not on file Obstetrics History Last Filed Vital Signs Vital Sign Reading [...] 05/09/2024 8:09 AM CDT Plan of Treatment Health Maintenance Due Date Last Done Comments Colon Cancer Screening-Colonoscopy 1966 Depression Screening 1966 Hepatitis C Screening 1966 Prostate Cancer Screening-PSA 1966 DTaP/Tdap/Td Vaccine (1 - Tdap) 1977 Hepatitis B Screening 1984 Regular Well Visit/Exam 18-64 1984 Zoster Vaccine (1 of 2) 2016 Covid-19 Vaccine (2023-2 5 season) 2023 05/05/2020, 04/07/2020 Influenza Vaccine (Season Ended) 2024 11/26/2019, 02/10/2019 Pneumococcal vaccine <65 Aged Out No longer eligible based on patient's age to complete [...] of Race in Diagnosing Kidney Disease, JASN 2020). The CKD-EPI equation should not be used for patients with unstable renal function and has not been validated in children and those over 70. Current interpretive data was last reviewed 2020. Testing performed by: [facility], [address] [place] [address]., [address] Blood 06/06/2024 6:53 AM CDT 06/06/2024 7:24 AM CDT us Karina Ulrich MD LAB BLOOD ORDERABLES Final Result [facility] [address] [facility] [place] [address] * Differential, auto (06/06/2024 6:53 AM CDT) Neutrophil abs 4.01 1.50 - 6.50 K/cumm Comment:Testing performed by : [address] [address] Imm gran abs 0.02 0.00 - 0.10 K/cumm [facility] Comment:Testing performed by : [address] [address] Lymphocyte abs 2.18 0.80 - 3.30 K/cumm [facility] Comment:Testing performed by : [address], [place]., [address] Monocyte abs 0.44 0.20 - 0.80 K/cumm [facility] Comment:Testing performed by : [address], [place]., [address] Eosinophil abs 0.17 0.00 - 0.50 K/cumm [facility] Comment:Testing performed by : [address] [address] Basophil abs 0.05 0.00 - 0.10 K/cumm [facility] Comment:Testing performed by : [address] [address] Neutrophil pct 58.4 % [facility] Comment: Interpretive Data Percent cell count reference ranges are not reported, since discordance with absolute values may lead to misinterpretation of CBC data. Current Interpretive Data was last revised on 2017. Testing performed by: [address] [address] Imm gran pct 0.3 % [facility] Comment: Interpretive Data Percent cell count reference ranges are not reported, since discordance with absolute values may lead to misinterpretation of CBC data. Current Interpretive Data was last revised on 2017. Testing performed by: [address] [address] Lymphocyte pct 31.7 % [facility] Comment: Interpretive Data Percent cell count reference ranges are not reported, since discordance with absolute values may lead to misinterpretation of CBC data. Current Interpretive Data was last revised on 2017. Testing performed by: [address] [address] Monocyte pct 6.4 % [facility] Comment: Interpretive Data Percent cell count reference ranges are not reported, since discordance with absolute values may lead to misinterpretation of CBC data. Current Interpretive Data was last revised on 2017. Testing performed by: [facility], [address] [place] [address]., [address] Eosinophil pct 2.5 % [facility] Comment: Interpretive Data Percent cell count reference ranges are not reported, since discordance with absolute values may lead to misinterpretation of CBC data. Current Interpretive Data was last revised on 2017. Testing performed by: [address] [address] Basophil pct 0.7 % [facility] Comment: Interpretive Data Percent cell count reference ranges are not reported, since discordance with absolute values may lead to misinterpretation of CBC data. Current Interpretive Data was last revised on 2017. Testing performed by: [address] [address] Blood 06/06/2024 6:53 AM CDT 06/06/2024 7:24 AM CDT us Karina Ulrich MD LAB BLOOD ORDERABLES Final Result [facility] [address] [facility] [place] [address] * Pro B-type natriuretic peptide (06/06/2024 6:53 [...] Heart J. 2006:27:330-337. 2. Keny RW, Lucretia BERGERON. J. AM Eldon Cardiol: Cardiovasc Imag. 2009;2: 216- 225. Interpretive Data Last Revised Date: 2017. Testing performed by: [facility], [address] [place] [address]., [address] Blood 06/06/2024 6:53 AM CDT 06/06/2024 7:24 AM CDT Karina Ulrich MD LAB BLOOD ORDERABLES Final Result Performing Organization Address [facility] de Phone Number [address] [place] [address] * Thyroid Function Mesa (06/06/2024 6:53 AM CDT) Pathologist [facility] TSH 0.97 0.30 - 4.20 mcIUnit/mL Comment:Testing performed by : [facility], [address] [place] [address]., [address] Blood 06/06/2024 6:5 3 AM CDT 06/06/2024 7:24 AM CDT Karina Ulrich MD LAB BLOOD ORDERABLES Final Result Performing Organization Address [facility] Co de Phone Number [address] [place] [address] * Apolipoprotein B, serum (06/06/2024 6:53 AM CDT) Pathologist [facility] Apolipoprotein B 87 mg/dL [facility] Comment: REFERENCE VALUE Desirable: <90 Above Desirable: 90-99 Borderline high: 100-119 High: 120-139 Very high: > or = 140 Test Performed by: [address] [address] Hr Internship: Siria Shoemaker Ph.D.; CLIA# [id number] Testing performed by: [address] [address] Blood 06/06/2024 6:53 AM CDT 06/06/2024 7:24 AM CDT us Karina Ulrich MD LAB BLOOD ORDERABLES Final Result [facility] Department [place] [address] [facility] * CBC with auto differential (06/06/2024 6:53 AM CDT) WBC 6.87 3.80 - 9.90 K/cumm Comment:Testing performed by : [address] [address] Hgb 15.3 13.0 - 17.5 g/dL [facility] Comment:Testing performed by : [address] [address] Hct 43.7 38.9 - 50.3 % [facility] Comment:Testing performed by : [address] [address] Plt 285 150 - 400 K/cumm [facility] Comment:Testing performed by : [address] [address] MPV 9.6 9.1 - 12.3 fL [facility] Comment:Testing performed by : [address] [address] RBC 5.36 4.30 - 5.80 M/cumm [facility] Comment:Testing performed by : [address] [address] MCV 81.5 81.3 - 96.4 fL [facility] Comment:Testing performed by : [address] [address] MCH 28.5 27.1 - 33.3 pg [facility] Comment:Testing performed by : [address] [address] MCHC 35.0 32.3 - 35.7 g/dL [facility] Comment:Testing performed by : [address], [address] RDW CV 12.3 11.1 - 14.9 % [facility] Comment:Testing performed by : [address] [address] RDW SD 36.2 35.7 - 48.1 fL [facility] Comment:Testing performed by : [address] [address] NRBC abs 0.00 0.00 - 0.01 K/cumm [facility] Comment:Testing performed by : [address] [address] Blood 06/06/2024 6:53 AM CDT 06/06/2024 7:24 AM CDT Karina Ulrich MD LAB BLOOD ORDERABLES Final Result [facility] [address] [facility] Department of Laboratories [place], [place] [id number] * (ABNORMAL) Lipoprotein a (LPa) (06/06/2024 6:53 AM CDT) Pathologist [facility] Lipoprotein A 170(H) <75 nmol/L [facility] Comment: Lp(a) confers increased risk [...] considered a risk enhancing factor by the [employer]. This test has been modified from the knowledge manager's instructions. Its performance characteristics were determined by [facility] in a manner consistent with CLIA requirements. This test has not been cleared or approved by the U.S. Food and Drug Administration. Test Performed by: [address] [address] Hr Internship: Siria Shoemaker Ph.D.; CLIA# [id number] Testing performed by: [address] [address] Blood 06/06/2024 6:53 AM CDT 06/06/2024 7:23 AM CDT Karina Ulrich MD LAB BLOOD ORDERABLES Final Result Performing Organization Address [facility] Co de Phone Number [address] [address] [facility] * Magnesium (06/06/2024 6:53 AM CDT) Pathologist [facility] Magnesium 1.9 1.4 - 2.5 mg/dL Comment:Testing performed by : [address] [address] Blood 06/06/2024 6:53 AM CDT 06/06/2024 7:24 AM CDT Karina Ulrich MD LAB BLOOD ORDERABLES Final Result Performing Organization Address [facility] Co de Phone Number [address] [address] * Hemoglobin A1c (06/06/2024 6:53 AM CDT) Hgb A1C 5.2 4.0 - 5.6 % Comment:Testing performed by : [address] [address] Estimated Average Glucose 103 mg/dL [facility]CH[facility] Comment: The ADA recommends reporting an estimated Average Glucose (eAG) with all Hemoglobin A1c results using the equation derived from a study of 507 normal and diabetic adults. Minority populations were underrepresented and children were not included. (Diabetes Care 31:5522-0722, 2008). The eAG is not equivalent to a fasting glucose. Testing performed by: [facility], [address] [place] [address]., [address] Blood 06/06/2024 6:53 AM CDT 06/06/2024 7:24 AM CDT us Karina Ulrich MD LAB BLOOD ORDERABLES Final Result [facility] [address] [facility] Department [place] [address] * Lipid panel (06/06/2024 6:53 AM CDT) [...] last revised on 2017. Testing performed by: [facility], [address] [place] [address]., [address] Triglycerides 113 <=149 mg/dL [facility] Comment: Interpretive Data Ages < or = [...] last revised on 2017. Testing performed by: [address] [address] HDL 46 >=40 mg/dL [facility] Comment: Interpretive [...] last revised on 2017. Testing performed by: [address] [address] LDL, calculated 103 <=129 mg/dL [facility] Comment: [...] 3. Mohan Oshea et al. ANGELA Cardiol. 2020 June 23;5(5):540-548. doi: 10.1001/[email or web address].2020.0013 Current Interpretive Data was last revised on 2023. Testing performed by: [address] [address] Non-HDL Cholesterol 123 mg/dL [facility] Comment: Interpretive [...] last revised on 2017. Testing performed by: [address] [address] Chol/HDL ratio 4 [facility] Comment:Testing performed by : [address] [address] Blood 06/06/2024 6:53 AM CDT 06/06/2024 7:24 AM CDT Karina Ulrich MD LAB BLOOD ORDERABLES Final Result [facility] Department [place] [address] * Comprehensive metabolic panel (06/06/2024 6:53 AM CDT) Sodium 142 135 - 145 mmol/L Comment:Testing performed by : [address] [address] Potassium, pl 3.5 3.3 - 4.9 mmol/L [facility] Comment:Testing performed by : [address] [address] Chloride 104 97 - 110 mmol/L [facility] Comment:Testing performed by : [address] [address] CO2 26 22 - 32 mmol/L [facility] Comment:Testing performed by : [address] [address] Anion gap 12 2 - 15 mmol/L [facility] Comment:Testing performed by : [address] [address] BUN 15 6 - 25 mg/dL [facility] Comment:Testing performed by : [address] [address] Creatinine 1.10 0.80 - 1.30 mg/dL [facility] Comment:Testing performed by : [address] [address] Glucose 105 70 - 199 mg/dL AMY [...] classification and Diagnosis of Diabetes Diabetes Care 2021; 46: S19-S40. Current interpretive data was last revised 2022. Testing performed by: [address] [address] Calcium 9.0 8.5 - 10.3 mg/dL [facility] Comment:Testing performed by : [address] [address] Bilirubin, total 0.6 0.1 - 1.2 mg/dL [facility] Comment:Testing performed by : [address] [address] Protein, pl 7.0 6.5 - 8.5 g/dL [facility] Comment:Testing performed by : [address] [address] Albumin 4.0 3.5 - 5.0 g/dL [facility] Comment:Testing performed by : [address] [address] Alk phos 62 40 - 130 Units/L [facility] Comment:Testing performed by : [address] [address] ALT 14 7 - 55 Units/L [facility] Comment:Testing performed by : [address], [address] AST 18 10 - 50 Units/L [facility] Comment:Testing performed by : [address] [address] Blood 06/06/2024 6:53 AM CDT 06/06/2024 7:24 AM CDT us Karina Ulrich MD LAB BLOOD ORDERABLES Final Result [facility] [address] [facility] Department [place] [address] * STRESS ECHO EXERCISE W DOPPLER/CF W CONTRAST (05/11/2024 8:53 AM CDT) Anatomical Region Laterality Modality Ultrasound 05/11/2024 7:30 AM CDT Narrative 05/11/2024 1:29 PM CDT [facility] [address] , [address] [place] [address] Exercise Stress Transthoracic Echocardiographic Report Patient Name: TERRY TREVINO S : 1965 (58y 11m) Gender: M Study Date: 05/11/2024 07:30:00 AM Ht(Inch): 71 Wt(Lb): 227.96 BSA: 2.28 Manager Water Wastewater: Lisbeth Cornejo, JEWEL, [facility], ACS Location: [facility] Order Provider: KARINA ULRICH Heart Rate: 66 [...] to not visualized. Unable to assess for OH/PS. Pericardium: No pericardial effusion. Aorta: Normal aortic [...] max HR achieved: 93 % Rate-Pressure Product: 55445 METS Achieved: 13.40 Treadmill Angina Index (0=No [...] Procedure Note Barbie Fung MD - 05/11/2024 [facility] [address], [address] [place] [address] Exercise Stress Transthoracic Echocardiographic Report Patient Name: TERRY TREVINO S : 1965 (58y 11m) Gender: M Study Date: 05/11/2024 07:30:00 AM Ht(Inch): 71 Wt(Lb): 227.96 BSA: 2.28 Manager Water Wastewater: Lisbeth Cornejo, JEWEL, [facility], ACS Location: [facility] Order Provider:KARINA ULRICH Heart Rate: 66 BMI: [...] due to notvisualized. Unable to assess for OH/PS. Pericardium: No pericardial effusion. Aorta: Normal aortic [...] max HR achieved: 93 % Rate-Pressure Product: 50259 METS Achieved: 13.40 Treadmill Angina Index (0=No [...] - 1.5 ] RWT 0.40 MV Decel Bjtk196.21 msec [ 104.00 - 258.00 ] EDV [...] Final from Last 3 Months Insurance [employer] [facility] [facility] H[facility]/PPO Address: [place] [address] [employer] [facility] [employer]/PPO Address: [address] [place] [address] [employer] [facility] [employer]/PPO Address[place] [id number] [place] [address] Care Teams Adhesive Primer Relationship Specialty Start Date End Date Nikole Rivera PA [address] [place] [address] PCP - General Physician Olive Picker 05/05/24 Karina Ulrich MD [address] [address] [facility] 06/14/24 02/23/40
--- OUTSIDE RECORDS SUMMARY | 2024-06-15 08:04 | XMS_ITS | Clinical Summary ---
Author Organization [facility] Address [address] [place] [address] Care Team Providers Care Mower Operator Name Role Phone Chema Branham MD Primary Care Provider [phone] Source Comments [facility],non-owned Affiliates and Associated Physician Practices is amultiple site organization consisting of ambulatory clinics and hospital sitesin [place], [place], [place] and [place]. This disclosure is being madepursuant to the Care Everywhere program and may not contain all information available regarding this patient. Last updated 17.[facility] Social History Tobacco Use Types Packs/Day Years Used Date Smoking Tobacco: Never Assessed Sex and Gender Information Value Date Recorded Sex Assigned at Not on file Legal Sex Male 2:05 PM CDT Gender Identity Not on file Sexual Orientation Not on file Plan of Treatment Health Maintenance Due Date Last Done Comments COLOGUARD (AGES 45-75) - COL ON CA SCREENING 1966 COLON MONITORING 1966 COLONOSCOPY - COLON CA SCREENING 1966 CT COLONOGRAPHY - COLON CA SCREENING 1966 Colorectal Cancer Screening 1966 FIT - COLON CA SCREENING 1966 FLEX SIG - COLON CA SCREENING 1966 LIPID TESTING 1966 HIV SCREENING 1981 HEPATITIS C SCREENING 06/05/1984 DTAP/TDAP/TD VACCINES (1 - Tdap) 1985 HEPATITIS B VACCINE (1 of 3 - 19+ 3-dose series) 1985 PNEUMOCOCCAL VACCINE 50+ (1 of 1 - PCV) 2016 ZOSTER VACCINE (1 of 2) 2016 COVID-19 VACCINE (1 - 2023-2 5 season) 2023 DEPRESSION SCREENING 02/24/2024 INFLUENZA VACCINE (Season Ended) 2024 HIB VACCINE Aged Out No longer eligi ble based on patient's age to complete this topic HPV VACCINE Aged Out No longer eligi ble based on patient's age to complete this topic MENINGOCOCCAL (Group B) VACC INE SHARED DECISION-MAKING Aged Out No longer eligibl e based on patient's age to complete this topic MENINGOCOCCAL GROUPS A/C/Y/W VACCINE Aged Out No longer eligible b ased on patient's age to complete this topic Insurance [facility] Care Teams Mower Operator Relationship Specialty Start Date End Date Chema Branham MD [address] [place] [id number] PCP - General 10/20/17
== END 2024-06-15 07:58 | disposition home or self-care (01) ==
PROVIDERS: PCP Family Medicine; Visit Provider Physician Assistant Medical
DX: M19.011 Primary osteoarthritis, right shoulder (principal)
CPT/HCPCS: 73030